=== PATIENT | male | born 1975 | race Caucasian/White ===

== ENCOUNTER 2016-12-29 13:34 | Emergency (ER) | payer OTHER ==
--- NOTE | 2016-12-29 13:50 | EDPHY ---
H & P - Medical/Surgical History Hx Asthma: No Hx Chronic Respiratory Disease: No Hx Diabetes: No Hx Cardiac Disease: No Hx Renal Disease: No Hx Cirrhosis: No Hx Alcoholism: No Hx HIV/AIDS: No Hx Splenectomy or Spleen Trauma: No Other PMH: bipolar with psychotic tendencies - Social History Smoking Status: Never smoked Time Seen by Provider: 12/29/16 13:36 HPI/ROS: CHIEF COMPLAINT: "I'm on 2 cylinders" HISTORY OF PRESENT ILLNESS: 41-year-old male arrives by ambulance accompanied by police on an M1 hold. Per police 911 was called after neighbors observed the patient in the courtyard the apartment complex with an approximately 8 inch knife stabbing the ground, stabbing rocks stating that he was "digging for satellites and gardening". When I inquired about this he states that he was meditating. He denies suicidal homicidal ideations. Repeatedly states "I'm on 2 cylinders". His only complaint physical pain is left lateral knee pain. States that this morning when he was a "smurf" he injured his knee "gardening" REVIEW OF SYSTEMS: A ten point review of systems was performed and is negative with the exception of the items mentioned in the HPI PAST MEDICAL & SURGICAL HISTORY: States his prior psychiatric history will not provide details SOCIAL HISTORY:he denies methamphetamine, alcohol or illicit drug use. PHYSICAL EXAM (Prior to examination, patient consented to physical exam, hands were washed and my usual and customary physical exam procedures followed) 1) GENERAL: Well-developed, well-nourished, alert, oriented, appears to be responding to internal stimuli . 2) HEAD: Normocephalic, atraumatic 3) HEENT: Pupils equal, round, reactive to light bilaterally. Sclera anicteric. 4) NECK: Full range of motion, no meningeal signs. 5) LUNGS: Clear auscultation bilaterally, no wheezes, no rhonchi, no retractions. 6) HEART: Regular rate and rhythm, no murmur, no heave, no gallop. 7) ABDOMEN: No guarding, no rebound, no focal tenderness 8) MUSCULOSKELETAL: Left lower extremity: Subacute ecchymosis left lateral knee with associated tenderness. Otherwise normal color, normal temperature, no effusion, full flexion and extension albeit with some pain to the lateral aspect. Soft compartments. No gross instability. No other visible signs of trauma. Proximally and distally nontender with DP PT pulses present and brisk. Brisk capillary refill distally. Otherwise, Moving all extremities, no focal areas of tenderness, no obvious trauma. No peripheral edema or discoloration. 9) BACK: No CVA tenderness, no midline vertebral tenderness, no fluctuance, no step-off, no obvious trauma, no visual or palpable abnormality. 10) SKIN: No rash, no petechiae. 11) Psychiatric: He appears to be responding to internal stimuli. He is intermittently cooperative. DIFFERENTIAL DIAGNOSIS: in no particular order including but not limited to psychosis, polysubstance abuse, anny (Jimbo Andino) Constitutional: Initial Vital Signs Heart Rate 101 H 12/29/16 13:55 Respiratory Rate 18 12/29/16 13:55 Blood Pressure 132/86 H 12/29/16 13:55 O2 Sat (%) 97 12/29/16 13:55 O2 Delivery Mode Room Air Allergies/Adverse Reactions: erythromycin base Allergy (Verified 07/08/14 18:18) Home Medications: Medication Instructions Recorded Famotidine [Pepcid 20 MG (*)] 20 mg PO DAILY PRN #30 tab 07/23/14 Levothyroxine [Synthroid 50 mcg 50 mcg PO DAILY06 #30 tab 07/23/14 (*)] [place] Carbonate ER [Eskalith Cr 900 mg PO HS #60 tab 07/23/14 450 mg (*)] OLANZapine [ZyPREXA 2.5 mg (*)] 2.5 mg PO BID PRN #60 tab 07/23/14 OLANZapine [ZyPREXA 2.5 mg (*)] 10 mg PO HS #30 tab 07/23/14 Medical Decision Making - Diagnostics Imaging: I viewed and interpreted images myself - Diagnostics Imaging Results: Imaging Impressions Knee X-Ray 12/29/16 18:08 Impression: No acute osseous findings. ED Course/Re-evaluation: 6:00 p.m.: Re-evaluation with serial exams. He is calm and sleeping after Zyprexa. X-ray will be obtained of the left knee as he complains of lateral knee pain. Doubt septic arthritis, doubt DVT, doubt compartment syndrome. 6:20: Care transferred to DR Petit in the ER. Mental health evaluation pending (Jimbo Andino) I took over care of this patient primarily at 6:20 p.m.. The patient is on an M1 hold for acute psychosis. He is awaiting evaluation by Behavioral Health at this time. He has been given Zyprexa. 10:00 p.m., the patient continues to await placement for psychiatric admission. There have been no issues during my shift. Care turned over to Dr. Gabe Joel at this time. (Tonia Petit) 2200 care assumed by me from Dr. Petit pending placement. 22:30 patient has been evaluated by psychiatry. Case discussed with Dr. Agus Carpenter. Patient is now calm and lucid after receiving Zyprexa. He has a history of anny when he skips his lithium. His admitting that he has been skipping his doses recently. His lithium level is only 0.4. He is now appropriate now. Patient is eduardo for safety and is eduardo to take his medications. He has been given 900 mg of lithium here at psychiatrist request. He will be discharged home with close follow-up as an outpatient. He does have medications at home he is in agreement with this plan. Patient is known to Dr. Carpenter very well. (Gabe Joel) - Data Points Laboratory Results: Laboratory Results 12/29/16 14:50 12/29/16 14:50 12/29/16 14:50 [place] 0.4 mEq/L L mEq/L (0.6-1.2) Medications Given: Discontinued Medications [place] Carbonate ([place] Carbonate) 900 mg PO ONCE ONE Stop: 12/29/16 22:03 Last Admin: 12/29/16 22:14 Dose: 900 mg Olanzapine (Zyprexa Im Injection) 10 mg IM EDNOW ONE Stop: 12/29/16 14:19 Last Admin: 12/29/16 14:21 Dose: 10 mg Departure - Departure Disposition: Home, Routine, Self-Care Clinical Impression: Acute psychosis, Traumatic ecchymosis of left knee Condition: Good Instructions: Bipolar Disorder (ED) Additional Instructions: Make sure you take your lithium daily as prescribed. Follow up with your psychiatrist tomorrow as scheduled. Return to the emergency department for increasing confusion, thoughts of self- harm, hallucinations, paranoia, or any other concerns. Referrals: Patient,NotPresent [Primary Care Provider] - As per Instructions
[2016-12-29] MEDS ORDERED: OLANZapine 10 MG/2 ML VIAL ONE (14:10)
[2016-12-29 14:18] VITALS: TEMP 98.4
[2016-12-29] MEDS ORDERED: OLANZapine 10 MG/2 ML VIAL IM ONE (14:18)
[2016-12-29 14:58] LABS: % IMMATURE GRANULYOCYTES 0.4 % (0.0-1.1); ABSOLUTE IMMATURE GRANULOCYTES 0.04 10^3/uL (0.00-0.10); ADD DIFF? NO; ADD MORPH? NO; ADD SCAN? NO; ATYPICAL LYMPHOCYTE FLAG 0 (0-99); FRAGMENT RBC FLAG 0 (0-99); HEMATOCRIT 45.2 % (40.0-51.0); HEMOGLOBIN 15.4 g/dL (13.7-17.5); LEFT SHIFT FLG 0 (0-99); LIPEMIA HEMOLYSIS FLAG 90 (0-99); MEAN CELL HEMOGLOBIN 30.4 pg (27.9-34.1); MEAN CELL HEMOGLOBIN CONCENTR. 34.1 g/dL (32.4-36.7); MEAN CELL VOLUME 89.2 fL (81.5-99.8); MEAN PLATELET VOLUME 9.4 fL (8.7-11.7); PLATELET CLUMPS FLAG 10 (0-99); PLATELET COUNT 324 10^3/uL (150-400); RED BLOOD CELL COUNT 5.07 10^6/uL (4.40-6.38); RED CELL DISTRIBUTION WIDTH 12.2 % (11.5-15.2)
[2016-12-29 15:26] LABS: ANION GAP 18 mEq/L (8-16); CALCIUM 10.5 mg/dL (8.5-10.4); CARBON DIOXIDE 19 mEq/l (22-31); CHLORIDE 101 mEq/L (97-110); CREATININE 1.3 mg/dL (0.7-1.3); ETHANOL SERUM < 10 mg/dL (0-10); GLOMERULAR FILTRATION RATE > 60; GLUCOSE 94 mg/dL (70-100); POTASSIUM 3.7 mEq/L (3.5-5.2); SALICYLATE < 1.0 mg/dL (2.0-20.0); SODIUM 138 mEq/L (134-144)
[2016-12-29 18:58] LABS: LITHIUM 0.4 mEq/L (0.6-1.2)
[2016-12-29] MEDS ORDERED: LITHIUM CARBONATE 300 MG TAB PO ONE (22:02)
[2016-12-29 23:02] VITALS: BP 133/75; PULSE 88; RESP 16; O2SAT 96
== END 2016-12-29 22:49 | disposition home or self-care (01) ==
LOC: EDUNIT#
DX: S80.02XA Contusion of left knee, initial encounter (principal); F23 Brief psychotic disorder; X58.XXXA Exposure to other specified factors, initial encounter; Y99.8 Other external cause status; Y93.H2 Activity, gardening and landscaping
CPT/HCPCS: 80305; G0480

== ENCOUNTER 2017-01-06 14:22 | Inpatient (IN) | payer OTHER ==
[2017-01-06] MEDS ORDERED: OLANZapine 5 MG TAB PO ONE ×2 (14:57→18:13)
[2017-01-06 15:02] LABS: % IMMATURE GRANULYOCYTES 0.5 % (0.0-1.1); ABSOLUTE IMMATURE GRANULOCYTES 0.06 10^3/uL (0.00-0.10); ADD DIFF? NO; ADD MORPH? NO; ADD SCAN? NO; ATYPICAL LYMPHOCYTE FLAG 0 (0-99); FRAGMENT RBC FLAG 0 (0-99); HEMOGLOBIN 14.7 g/dL (13.7-17.5); LEFT SHIFT FLG 0 (0-99); LIPEMIA HEMOLYSIS FLAG 80 (0-99); MEAN CELL HEMOGLOBIN 30.6 pg (27.9-34.1); MEAN CELL HEMOGLOBIN CONCENTR. 33.4 g/dL (32.4-36.7); MEAN CELL VOLUME 91.5 fL (81.5-99.8); MEAN PLATELET VOLUME 9.5 fL (8.7-11.7); PLATELET CLUMPS FLAG 0 (0-99); PLATELET COUNT 397 10^3/uL (150-400); RED BLOOD CELL COUNT 4.81 10^6/uL (4.40-6.38); RED CELL DISTRIBUTION WIDTH 12.1 % (11.5-15.2)
[2017-01-06 15:18] LABS: ANION GAP 17 mEq/L (8-16); CALCIUM 10.6 mg/dL (8.5-10.4); CARBON DIOXIDE 19 mEq/l (22-31); CHLORIDE 105 mEq/L (97-110); CREATININE 1.3 mg/dL (0.7-1.3); ETHANOL SERUM < 10 mg/dL (0-10); GLOMERULAR FILTRATION RATE > 60; GLUCOSE 133 mg/dL (70-100); POTASSIUM 4.2 mEq/L (3.5-5.2); SALICYLATE < 1.0 mg/dL (2.0-20.0); SODIUM 141 mEq/L (134-144)
--- NOTE | 2017-01-06 15:20 | EDPHY ---
H & P Stated Complaint: m1 HPI/ROS: CHIEF COMPLAINT: M1, not taking medication, psychosis HISTORY OF PRESENT ILLNESS: Patient presents and custody of [place] [employer] on an M1 hold. Please for contacted by his sister due to suspected psychosis. Monica montalvo sister, reports that since Friday he has been "really bad." She describes anergy, lack of self-care, not taking medications. History of bipolar disorder , and he is supposed to be taking Zyprexa, lithium and Risperdal. She feels that he is not taking any medications since Friday. She and their father were able to get him to take risperdal last night. She thinks he may have taken 1 lithium last night. Unable to obtain any meaningful history from the patient as he will not answer any questions appropriately. Was recently at this facility last week and discharged home. Followed up with physician on Friday. No other associated complaints or modifying factors obtained from this patient. PSYCHIATRIC DIAGNOSES: Bipolar disorder PRIOR PSYCHIATRIC EVALUATIONS: Multiple M1/DETAINER: By [place] [employer] as Documented REVIEW OF SYSTEMS: Ten systems reviewed and are negative unless otherwise noted in the HPI EXAMINATION General Appearance: Alert, no distress, unkempt Head: normocephalic, atraumatic Eyes: Pupils equal and round, no conjunctival pallor or injection ENT, Mouth: Mucous membranes moist Neck: Normal inspection, midline trachea Respiratory: Retractions or distress. Unable to auscultate due to patient lack of cooperation Cardiovascular: Regular rate. Unable to auscultate due to patient lack of cooperation Gastrointestinal: No abdominal distention Neurological: Alert to person. Unable to obtain remainder of neuro status Skin: Warm and dry, no rash. No signs of laceration or self-harm Extremities: Nontender, no pedal edema Psychiatric: Psychosis with flat affect. He will answer my questions regarding suicidality DIFFERENTIAL DIAGNOSES: Including but not limited to acute psychosis, bipolar disorder, manic episode, depression MDM: 3:08 p.m. Acute psychosis inpatient bipolar disorder not taking his medications. Unable to obtain any meaningful examination from this patient as he will not cooperate with questioning, examination, or history. unable to determine if you suicidal or homicidal. Laboratory studies are pending. 5 mg p.o. Zyprexa administered. 3:35 p.m. Rama HEALY has contacted the patient's pharmacy. She has a complete list of medications prescribed and does that he has not picked up or taking. There is documentation that he has been prescribed levothyroxine. He will not discuss this with us, thus I will order TSH. still waiting for urine sample. 4:45 p.m.. Urinalysis returned. Patient is medically cleared for evaluation. [facility] then notified and they are arranging for evaluation. 6:15 p.m. Notified by RN that the patient is awaiting evaluation. He has become more anxious and agitated. She is requesting Zyprexa p.o.. I have ordered 5 mg. This brings him to a total of 10 mg p.o.. 7:08 p.m. Patient has been accepted to [address] [place] [address] for inpatient psychiatric care. Accepted by Dr. Ying. He will be transported by ambulance. He is transferred in stable condition SUPERVISION: Patient was evaluated in conjunction with the supervising physician. Please see their note for details. Source: Patient, RN/MD - Personal History Current Tetanus/Diphtheria Vaccine: Unsure - Medical/Surgical History Hx Asthma: No Hx Chronic Respiratory Disease: No Hx Diabetes: No Hx Cardiac Disease: No Hx Renal Disease: No Hx Cirrhosis: No Hx Alcoholism: No Hx HIV/AIDS: No Hx Splenectomy or Spleen Trauma: No Other PMH: bipolar with psychotic tendencies - Social History Smoking Status: Never smoked Constitutional: Initial Vital Signs Temperature (C) 98.4 F 01/06/17 14:26 Heart Rate 113 H 01/06/17 14:26 Respiratory Rate 16 01/06/17 14:26 Blood Pressure 117/72 01/06/17 14:26 O2 Sat (%) 97 01/06/17 14:26 O2 Delivery Mode Room Air Allergies/Adverse Reactions: erythromycin base Allergy (Verified 01/06/17 16:04) Home Medications: Medication Instructions Recorded [place] Carbonate ER [Eskalith Cr 900 mg PO HS #60 tab 07/23/14 450 mg (*)] ALPRAZolam [Xanax 0.25 MG (*)] 0.25 mg PO TID PRN 01/06/17 Levothyroxine [Synthroid 50 mcg 75 mcg PO DAILY06 01/06/17 (*)] Propranolol HCl [Inderal 10mg (*)] 10 mg PO DAILY PRN 01/06/17 Zolpidem Tartrate [Ambien 10 mg] 10 mg PO HS 01/06/17 clonAZEPAM [Klonopin] 1 mg PO HS 01/06/17 Medical Decision Making - Data Points Laboratory Results: Laboratory Results 01/06/17 14:36 01/06/17 14:36 01/06/17 01/06/17 01/06/17 16:15 14:36 14:36 WBC 11.19 10^3/uL H 10^3/uL (3.80-9.50) RBC 4.81 10^6/uL 10^6/uL (4.40-6.38) Hgb 14.7 g/dL g/dL (13.7-17.5) Hct 44.0 % % (40.0-51.0) MCV 91.5 fL fL (81.5-99.8) MCH 30.6 pg pg (27.9-34.1) MCHC 33.4 g/dL g/dL (32.4-36.7) RDW 12.1 % % (11.5-15.2) Plt Count 397 10^3/uL 10^3/uL (150-400) MPV 9.5 fL fL (8.7-11.7) Neut % (Auto) 80.9 % H % (39.3-74.2) Lymph % (Auto) 11.3 % L % (15.0-45.0) [place] % (Auto) 4.8 % % (4.5-13.0) Eos % (Auto) 1.6 % % (0.6-7.6) Baso % (Auto) 0.9 % % (0.3-1.7) Nucleat RBC Rel Count 0.0 % % (0.0-0.2) Absolute Neuts (auto) 9.05 10^3/uL H 10^3/uL (1.70-6.50) Absolute Lymphs (auto) 1.26 10^3/uL 10^3/uL (1.00-3.00) Absolute Monos (auto) 0.54 10^3/uL 10^3/uL (0.30-0.80) Absolute Eos (auto) 0.18 10^3/uL 10^3/uL (0.03-0.40) Absolute Basos (auto) 0.10 10^3/uL 10^3/uL (0.02-0.10) Absolute Nucleated RBC 0.00 10^3/uL 10^3/uL (0-0.01) Immature Gran % 0.5 % % (0.0-1.1) Immature Gran # 0.06 10^3/uL 10^3/uL (0.00-0.10) Sodium 141 mEq/L mEq/L (134-144) Potassium 4.2 mEq/L mEq/L (3.5-5.2) Chloride 105 mEq/L mEq/L (97-110) Carbon Dioxide 19 mEq/l L mEq/l (22-31) Anion Gap 17 mEq/L H mEq/L (8-16) BUN 17 mg/dL mg/dL (7-23) Creatinine 1.3 mg/dL mg/dL (0.7-1.3) Estimated GFR > 60 Glucose 133 mg/dL H mg/dL (70-100) Calcium 10.6 mg/dL H mg/dL (8.5-10.4) Salicylates < 1.0 mg/dL L mg/dL (2.0-20.0) Urine Opiates Screen NEGATIVE (NEGATIVE) Acetaminophen < 10 mcg/mL L mcg/mL (10-30) Urine Barbiturates NEGATIVE (NEGATIVE) Ur Phencyclidine Scrn NEGATIVE (NEGATIVE) Ur Amphetamine Screen NEGATIVE (NEGATIVE) U Benzodiazepines Scrn NEGATIVE (NEGATIVE) [place] 1.0 mEq/L mEq/L (0.6-1.2) Urine Cocaine Screen NEGATIVE (NEGATIVE) U Marijuana (THC) Screen NEGATIVE (NEGATIVE) Ethyl Alcohol < 10 mg/dL mg/dL (0-10) Medications Given: Discontinued Medications Olanzapine (Olanzapine) 5 mg PO ONCE ONE Stop: 01/06/17 14:58 Last Admin: 01/06/17 15:19 Dose: 5 mg Olanzapine (Olanzapine) 5 mg PO ONCE ONE Stop: 01/06/17 18:14 Last Admin: 01/06/17 18:24 Dose: 5 mg Departure - Departure Disposition: [facility] IP Clinical Impression: Acute psychosis Bipolar disorder Qualifiers: Active/Remission status: currently active Current bipolar episode type: mixed Current episode severity: moderate Qualified Code(s): F31.62 - Bipolar disorder , current episode mixed, moderate Condition: Good Referrals: NONE *PRIMARY CARE P,. [Primary Care Provider] - As per Instructions
[2017-01-06] MEDS ORDERED: MAG HYDROX/AL HYDROX/SIMETH 30 ML UDCUP PO PRN (21:43)
[2017-01-06] MEDS ORDERED: OLANZapine DISINTEGR 10 MG TAB PO PRN (21:43)
[2017-01-06] MEDS ORDERED: ACETAMINOPHEN 325 MG TAB PO PRN (21:43)
[2017-01-06] MEDS ORDERED: MAGNESIUM HYDROXIDE 30 ML UDCUP PO PRN (21:43)
[2017-01-06] MEDS: LITHIUM CARBONATE ER 450 MG TAB PO SCH ×2 (22:04→22:36)
[2017-01-06] MEDS: ZOLPIDEM TARTRATE 5 MG TAB PO SCH (22:04)
[2017-01-06] MEDS: PROPRANOLOL HCL 10 MG TAB PO PRN (22:05)
[2017-01-07] MEDS: NICOTINE POLACRILEX 2 MG GUM B PRN ×7 (05:38→17:37)
[2017-01-07] MEDS: LEVOTHYROXINE 75 MCG TAB PO SCH (08:35)
[2017-01-07] MEDS: LORazepam 0.5 MG TAB PO PRN ×2 (08:35→11:06)
[2017-01-07] MEDS: PROPRANOLOL HCL 10 MG TAB PO PRN (08:36)
[2017-01-07] MEDS: NICOTINE 14 MG/24 HR PATCH TD SCH ×2 (11:43→11:47)
[2017-01-07] MEDS: OLANZapine DISINTEGR 10 MG TAB PO SCH ×2 (11:47→22:20)
--- NOTE | 2017-01-07 13:07 | BAPA ---
[f rep st] ADMISSION PSYCHIATRIC ASSESSMENT DATE OF SERVICE: 01/07/2017 REASON FOR ADMISSION: Patient is a 41-year-old male with history of bipolar disorder that apparently presents with recurrent anny with psychosis. He came to the emergency department yesterd ay after his sister called the police to do a welfare check. He had numerous run-ins with the police recently, causing disturbances around his apartment complex and she was concerned that he was becomi ng manic. He has had repeated episodes of psychotic anny, the last being last spring where [facility] was apparently able to manage him in her home but she reported then and then again to the [facility] staf f yesterday that the patient is very fragile and if he misses even a dose of medications it can set h im off. The patient is unable to give much of a clear history today stating that he was compliant wi th his medications and that he believes he is in perfectly good health. In fact, he is very disorgan ized, disheveled and had been acting bizarrely in his home which is consistent with previous episodes of anny. He had been playing drums loudly, disturbing the neighbors and breaking rocks with a cr er. 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 He again states that he has been compliant with his medications. He states that the lithium works well for him but he does not like Zyprexa but cannot say why. He is unclear whether he has been sleeping recently though the sister re ported that he may not have been. In the emergency department he was agitated and disorganized, unab le to give meaningful history there are either. Much of the history was taken from previous evaluati ons and collateral information from his sister. I have reviewed his last hospitalization with [facility] was from July 08, 2014 to July 23, 2014 under the care primarily of Dr. Jaimee Lees. At that time, the patient was diagnosed with bipolar type 1 disorder and treated with a combination of lithiu m and Zyprexa. He stabilized well. PAST PSYCHIATRIC HISTORY: Significant for 3 previous psychiatric hospitalizations, last at [facility] as mentioned above. He sees Dr. Holden in [place] for his medication management and has a [facility] individual therapist. ALLERGIES: Erythromycin. CURRENT MEDICATIONS: Levothyroxine 75 mcg daily. Alprazolam 0.25 mg three times daily p.r.n. [place] zepam 1 mg at bedtime. [place] carbonate ER 900 mg at bedtime. Propranolol 10 mg daily. Ambien 10 mg at bedtime. PAST MEDICAL HISTORY: Noncontributory. SOCIAL HISTORY: Patient is single, lives alone in an apartment in [place]. His sister is his primar y support. 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 He reportedly drinks alcohol on a regular basis, though he c annot describe the amount. His sister gives collateral information that she believes he has been dri nking excessively. He has no history of legal problems. He notes no other stressors and none are do cumented by the [facility] report. FAMILY HISTORY: Noncontributory. ADMISSION LABORATORY: CBC shows a white count slightly up at 11.19 with neutrophils also up at 80.9% . Carbon dioxide is low at 19 with an anion gap up at 17. Nonfasting glucose is up at 133. Calcium is slightly up at 10.6. Urine drug screen is negative for all substances. [place] was 1.0 on arriv al. Alcohol was less than detectable. MENTAL STATUS EXAMINATION: Reveals a thin, though healthy-appearing male. He is marginall y groomed. He is wearing pajama bottoms and a T-shirt. He interacts appropriately though appears to be quite guarded. His activity is slightly increased with some psychomotor agitation such as pacing and standing uneasily at the nurses station. His speech is hesitant, delayed at times but also volu minous at other times. His affect is constricted, anxious. His mood is described as "just fine." T hought process is tangential, disorganized at times. Thought content reveals possible paranoia. He is alert and oriented to person, place, time, and situation though he struggles to answer most questi ons. His attention and concentration are poor. Patient's intellect appears to be above average, as evidenced by his educational and occupational histories. He denies any thoughts of suicide, homicide or violence. His insight and judgment appear to be poor. IMPRESSION: Bipolar 1 disorder, most recent episode manic, severe, with psychosis. Chronic illness, recurrent illness. Marginal supports. Conflict with neighbors. Patient is a pleasant 41-year-old male who presents with what appears to be a recurrence of his psychotic anny. There are some aspects of it that are atypical including level of confusion he has and his disrupted thoughts. This is, however, consistent with a description of his last present ation and description that his sister gives of his presentations when he is manic. I do not believe that he is delirious though he has slightly elevated white counts. Will need to monitor this as well . PLAN: 1. Admit to [facility] inpatient unit on an M1 hold. 2. Continue outpatient medications including lithium with the addition of Zyprexa. The risks, benef its and alternatives of Zyprexa were discussed with the patient. He states he is not excited about t aking it but will consider it. 3. Will engage in individual, group, and milieu psychotherapies. Provide supportive environment. 4. Will hope to engage patient's sister as a primary support and would have a family meeting if shivani red. 5. Estimated length of stay is 5-7 days. /[id number]/MODL
--- NOTE | 2017-01-07 15:17 | BCON ---
[f rep st] BEHAVIORAL HEALTH CONSULTATION INTERNAL MEDICINE CONSULTATION DATE OF CONSULTATION: 01/07/2017 REFERRING PHYSICIAN: Brando Doe MD REASON FOR REFERRAL: Medical clearance for inpatient behavioral health stay. HISTORY OF PRESENT ILLNESS: [facility] after his sister called police for a welfare check. She was concerned that he was not taking care of himself and not taking his medications. He was evaluated by the mental health team and admitted for further psychiatric care. He is currently without any acute complaints. PAST MEDICAL HISTORY: 1. Bipolar disorder. 2. Hypothyroidism. 3. Multiple cutaneous warts. PAST SURGICAL HISTORY: He reports he has had several dental procedures. Additionally, he has had multiple warts removed from his fingers and foot. MEDICATIONS: He was prescribed lithium, levothyroxine, and per the emergency department note, olanzapine. Also, there is reference to Risperdal, and then on the medication summary, it lists zolpidem, clonazepam, alprazolam, and propranolol. ALLERGIES: He has an allergy listed to erythromycin. SOCIAL HISTORY: He lives alone in an apartment in [place]. He is an occasional cigarette smoker. 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 FAMILY HISTORY: Noncontributory. REVIEW OF SYSTEMS: Difficult to elicit. He seems to make reference to possible temporomandibular joint issues on the left. He says his weight has fluctuated by 2 or 3 pounds, up or down. He feels cold. He denies cough, dyspnea, fevers or chills, nausea, vomiting, constipation, or diarrhea. He is unclear about his appetite and makes tangential statements when asked. Otherwise, to the extent that it could be obtained, a 10-point review of systems was negative. PHYSICAL EXAM: VITAL SIGNS: Blood pressure is 146/87, heart rate is 80, respiratory rate 16, oxygen saturation 95% on room air, temperature 36.5 degrees centigrade. His weight is 72.6 kg for a body mass index of 23.6. GENERAL: This is a well-nourished, well-developed man, sitting at a table, cooperative and in no acute distress. HEENT: Extraocular movements are intact. Pupils are equal, round, reactive to light. He has exophthalmos bilaterally. Mucous membranes are moist. Dentition is in good condition. He has an uncrowded airway, Mallampati class 1. NECK: Supple. HEART: There is a regular rate and rhythm with no murmurs, rubs, or gallops. LUNGS: Clear to auscultation bilaterally. ABDOMEN: Soft, nontender, nondistended with normoactive bowel sounds. EXTREMITIES: There is no cyanosis, clubbing, or edema. NEUROLOGIC: He is alert, he is oriented to himself and his location. Orientation to month and date were not tested. Cranial nerves 2-12 are grossly intact. There is no focal weakness. Sensation is intact to light touch. LABORATORY STUDIES: Drawn in the emergency department: CBC showed a mild elevation of white blood cells of 11.19, with a predominance of absolute neutrophils at 9.05. Serum chemistry showed a low carbon dioxide at 19. He had a positive anion gap at 17. Glucose was 133, but this was likely not fasting. Calcium was slightly high at 10.6. Otherwise, renal function and electrolytes were within normal limits. Toxicology screen in the serum was negative for salicylates, acetaminophen or ethyl alcohol. [place] level was therapeutic at 1. Toxicology screen in the urine was negative for any substances of abuse. ASSESSMENT/RECOMMENDATIONS: 1. Mental health issues, pending further evaluation and management per Psychiatry and the mental health team. 2. Hypothyroidism and exophthalmos. It is conceivable that he has Graves disease. Exam is somewhat confounded by a reduced blink rate, which might be consistent with having received antipsychotic medications. I will add on a TSH , though it is unclear to what extent he has been compliant with his levothyroxine. If the TSH is significantly suppressed, then it is conceivable that hyperthyroidism could be contributing to his psychiatric state. If it is low, advise continuing levothyroxine supplementation, ensuring compliance, and rechecking a TSH in 4-6 weeks. 3. Reduced blink rate. He otherwise seems to have some psychomotor agitation and a slight tremor. He also has description of possible temporomandibular joint pain, though it is discussed in the context of hearing chattering, and he refers to the television as a source of chattering. Advise observation, especially with reinstatement of antipsychotics, to ensure that there is no dyskinesia development. 4. I see no medical contraindications to this patient's continued stay on the inpatient behavioral health unit or to any psychiatric medications or procedures. Thank you very much for including me in the care of this patient. Please do not hesitate to contact me or the hospitalist service, should there be need for further medical evaluation. /[id number]/MODL MTDD
[2017-01-07] MEDS ORDERED: HALOPERIDOL LACT 5 MG/ML INJ ONE (22:20)
[2017-01-07] MEDS ORDERED: LORazepam 2 MG/ML INJ ONE (22:20)
[2017-01-07] MEDS: LITHIUM CARBONATE ER 450 MG TAB PO SCH (22:20)
[2017-01-07] MEDS: ZOLPIDEM TARTRATE 5 MG TAB PO SCH (22:21)
[2017-01-07] MEDS ORDERED: LORazepam 2 MG/ML INJ IM ONE (22:30)
[2017-01-07] MEDS ORDERED: HALOPERIDOL LACT 5 MG/ML INJ IM ONE (22:30)
[2017-01-08] MEDS: LEVOTHYROXINE 75 MCG TAB PO SCH (12:37)
[2017-01-08] MEDS: PROPRANOLOL HCL 10 MG TAB PO PRN (12:42)
[2017-01-08] MEDS: NICOTINE 14 MG/24 HR PATCH TD SCH (13:44)
[2017-01-08 16:53] LABS: LITHIUM 0.4 mEq/L (0.6-1.2)
[2017-01-08] MEDS: NICOTINE POLACRILEX 2 MG GUM B PRN (18:40)
[2017-01-08] MEDS: LITHIUM CARBONATE ER 450 MG TAB PO SCH (21:00)
[2017-01-08] MEDS: OLANZapine DISINTEGR 10 MG TAB PO SCH (21:00)
[2017-01-08] MEDS: ZOLPIDEM TARTRATE 5 MG TAB PO SCH (21:00)
[2017-01-09] MEDS: LEVOTHYROXINE 75 MCG TAB PO SCH (08:11)
[2017-01-09] MEDS: NICOTINE 14 MG/24 HR PATCH TD SCH (08:42)
[2017-01-09] MEDS: PROPRANOLOL HCL 10 MG TAB PO PRN (08:59)
--- NOTE | 2017-01-09 09:07 | SOAPPROG ---
SOAP Progress Note Assessment/Plan: Assessment: Plan: 01/09/17 09:06 Remains manic, agitated, psychotic. Will CCM. 01/09/17 09:07 Remains manic, psychotic. CCM. Subjective: LATE ENTRY FOR 01/08/17. Pt seen, discussed with staff. Events of last night reviewed with staff and pt. He has limited insight into this stating he was "just upset about being here." Has been calmer today. Good effect from Emeds. Seclusion not required after meds given. Sitting in dining room this morning, not interacting meaningfully with others. States he feels "better today." Objective: Vital Signs Temp Pulse Resp BP Pulse Ox 36.3 C 85 12 135/78 H 98 01/09/17 06:00 01/09/17 08:47 01/09/17 08:47 01/09/17 08:47 01/09/17 08:47 MSE: Disheveled, guarded. Affect is constricted, irritable. Mood is "better." TP linear for brief periods, tangential at other times. TC reveals paranoia. - Time Spent With Patient Time Spent With Patient: 15" - Pending Discharge Pending Discharge Within 24 Hours: No ICD10 Worksheet Patient Problems: Problems Problem Status Onset Acute psychosis Acute Bipolar affective disorder Acute
[2017-01-09] MEDS: NICOTINE POLACRILEX 2 MG GUM B PRN ×3 (13:49→19:10)
--- NOTE | 2017-01-09 19:51 | SOAPPROG ---
SOAP Progress Note Assessment/Plan: Assessment: Plan: 01/09/17 09:06 Remains manic, agitated, psychotic. Will CCM. 01/09/17 09:07 Remains manic, psychotic. CCM. 01/09/17 19:51 Much improved today. CCM. Subjective: Pt seen, discussed with staff. Reports feeling "a lot better" today. He looks better with a clearer countenance, more spontaneous responses to questions and more organized. thoughts. Continues to state he needs to leave the hospital and is unwilling to sign in voluntarily. He c/o ongoing bilateral hand tremors. AIMS performed by RN = 7. I note bilateral course hand tremor, worse with intention. No cogwheeling. Objective: Vital Signs Temp Pulse Resp BP Pulse Ox 36.3 C 85 12 135/78 H 98 01/09/17 06:00 01/09/17 08:47 01/09/17 08:47 01/09/17 08:47 01/09/17 08:47 MSE: Calmer, though still guarded. Affect is constricted, stable, approp. Mood is "better." TP linear. TC reveals continued paranoia, though less intrusive. - Time Spent With Patient Time Spent With Patient: 15" ICD10 Worksheet Patient Problems: Problems Problem Status Onset Acute psychosis Acute Bipolar affective disorder Acute
[2017-01-09] MEDS: OLANZapine DISINTEGR 10 MG TAB PO SCH (21:39)
[2017-01-09] MEDS: LITHIUM CARBONATE ER 450 MG TAB PO SCH (21:39)
[2017-01-09] MEDS: PROPRANOLOL HCL 10 MG TAB PO SCH (21:39)
[2017-01-09] MEDS: ZOLPIDEM TARTRATE 5 MG TAB PO SCH (21:39)
[2017-01-10] MEDS: LEVOTHYROXINE 75 MCG TAB PO SCH (07:28)
[2017-01-10] MEDS: PROPRANOLOL HCL 10 MG TAB PO SCH ×2 (07:28→20:48)
[2017-01-10] MEDS: NICOTINE POLACRILEX 2 MG GUM B PRN ×4 (07:28→19:28)
[2017-01-10] MEDS: NICOTINE 14 MG/24 HR PATCH TD SCH (07:55)
--- NOTE | 2017-01-10 15:12 | SOAPPROG ---
SOAP Progress Note Assessment/Plan: Assessment: Plan: 01/09/17 09:06 Remains manic, agitated, psychotic. Will CCM. 01/09/17 09:07 Remains manic, psychotic. CCM. 01/09/17 19:51 Much improved today. [facility]. 01/10/17 15:12 Continued improvement. Not at baseline following recent decompensation. needs to improve further to allow safe d/c and compliance with outpatient plan including traveling to [place] via car with his father. Subjective: Pt seen, discussed with staff. Reports feeling "a lot better" again today. Slept well. Tolerating meds well. Asks about Zyprexa vs. Risperdal and we discussed the differences. He voices a preference for Zyprexa. Family meeting held with pt, myself, CC, pt's father and pt's sister. This went well. All agreed on plan to go to [place] after d/c with likely d/c on Friday to allow maximum improvement. Objective: Vital Signs Temp Pulse Resp BP Pulse Ox 36.4 C 72 12 105/68 97 01/10/17 06:00 01/10/17 06:00 01/10/17 06:00 01/10/17 06:00 01/10/17 06:00 MSE; Well-groomed, coop. Affect is constricted, stable, approp. Mood is "fine." TP generally linear, but gives some rather circumstantial or "canned" answers to questions at times as if he didn't really follow the questions. Answers such as "We will have to see how that goes" or "We can talk about that later." TC reveals better organization and no evidence of perceptual disturbances. - Time Spent With Patient Time Spent With Patient: 35" ICD10 Worksheet Patient Problems: Problems Problem Status Onset Acute psychosis Acute Bipolar affective disorder Acute
[2017-01-10] MEDS: OLANZapine DISINTEGR 10 MG TAB PO SCH (20:49)
[2017-01-10] MEDS: LITHIUM CARBONATE ER 450 MG TAB PO SCH (20:49)
[2017-01-10] MEDS: ZOLPIDEM TARTRATE 5 MG TAB PO SCH (20:49)
[2017-01-11 06:25] VITALS: RESP 14
[2017-01-11] MEDS: LEVOTHYROXINE 75 MCG TAB PO SCH (07:56)
[2017-01-11] MEDS: PROPRANOLOL HCL 10 MG TAB PO SCH ×2 (07:57→21:09)
[2017-01-11] MEDS: NICOTINE 14 MG/24 HR PATCH TD SCH (10:40)
--- NOTE | 2017-01-11 12:49 | SOAPPROG ---
SOAP Progress Note Assessment/Plan: Assessment: Plan: 01/09/17 09:06 Remains manic, agitated, psychotic. Will CCM. 01/09/17 09:07 Remains manic, psychotic. CCM. 01/09/17 19:51 Much improved today. CCM. 01/10/17 15:12 Continued improvement. Not at baseline following recent decompensation. needs to improve further to allow safe d/c and compliance with outpatient plan including traveling to [place] via car with his father. 01/11/17 12:48 Continued daily improvement. Will [facility], check lithium level tomorrow. Subjective: Pt seen, discussed with staff. Reports feeling "pretty good." Participating in groups. Slept well last night. Objective: Vital Signs Temp Pulse Resp BP Pulse Ox 36.6 C 62 14 133/78 H 97 01/11/17 06:00 01/11/17 07:57 01/11/17 06:00 01/11/17 07:57 01/11/17 06:00 MSE: Well-groomed, pleasant and coop. Affect is blunted, stable. Mood is "OK. " TP linear, though slowed. TC reveals no mention of paranoia. - Time Spent With Patient Time Spent With Patient: 15" ICD10 Worksheet Patient Problems: Problems Problem Status Onset Acute psychosis Acute Bipolar affective disorder Acute
[2017-01-11] MEDS: NICOTINE POLACRILEX 2 MG GUM B PRN ×2 (13:11→17:12)
[2017-01-11] MEDS: LITHIUM CARBONATE ER 450 MG TAB PO SCH (17:46)
[2017-01-11] MEDS: ZOLPIDEM TARTRATE 5 MG TAB PO SCH (21:08)
[2017-01-11] MEDS: OLANZapine DISINTEGR 10 MG TAB PO SCH (21:09)
[2017-01-12 06:21] VITALS: O2SAT 94
[2017-01-12] MEDS: PROPRANOLOL HCL 10 MG TAB PO SCH ×2 (08:18→20:47)
[2017-01-12] MEDS: NICOTINE POLACRILEX 2 MG GUM B PRN ×2 (08:35→18:40)
[2017-01-12] MEDS: NICOTINE 14 MG/24 HR PATCH TD SCH (11:42)
[2017-01-12] MEDS: LEVOTHYROXINE 75 MCG TAB PO SCH (15:08)
--- NOTE | 2017-01-12 20:29 | SOAPPROG ---
SOAP Progress Note Assessment/Plan: Assessment: Plan: 01/09/17 09:06 Remains manic, agitated, psychotic. Will CCM. 01/09/17 09:07 Remains manic, psychotic. CCM. 01/09/17 19:51 Much improved today. CCM. 01/10/17 15:12 Continued improvement. Not at baseline following recent decompensation. needs to improve further to allow safe d/c and compliance with outpatient plan including traveling to [place] via car with his father. 01/11/17 12:48 Continued daily improvement. Will [facility], check lithium level tomorrow. 01/12/17 20:28 Doing well. CCM. Likely d/c in am if all is well. Subjective: Pt seen, discussed with staff. Reports feeling "pretty good." Up and groomed, making his bed. States he is ready to be d/c'd to his father's home. Father and sister are present for visiting and voice their continued support of the plan. Objective: Vital Signs Temp Pulse Resp BP Pulse Ox 36.3 C 72 14 113/72 94 01/12/17 06:00 01/12/17 08:18 01/12/17 06:00 01/12/17 08:18 01/12/17 06:00 MSE: Calm, coop. Affect is blunted, stable, approp. Mood is "pretty good." TP generally linear, though does derail at times. TC reveals no mention of paranoid thoughts. [place] level = 1.0 - Time Spent With Patient Time Spent With Patient: 15" ICD10 Worksheet Patient Problems: Problems Problem Status Onset Acute psychosis Acute Bipolar affective disorder Acute
[2017-01-12] MEDS: LITHIUM CARBONATE ER 450 MG TAB PO SCH (20:47)
[2017-01-12] MEDS: ZOLPIDEM TARTRATE 5 MG TAB PO SCH (20:47)
[2017-01-12] MEDS: OLANZapine DISINTEGR 10 MG TAB PO SCH (20:47)
[2017-01-13 06:32] VITALS: BP 108/65; PULSE 57; TEMP 98
[2017-01-13] MEDS: PROPRANOLOL HCL 10 MG TAB PO SCH (08:21)
[2017-01-13] MEDS: LEVOTHYROXINE 75 MCG TAB PO SCH (08:22)
[2017-01-13] MEDS: NICOTINE POLACRILEX 2 MG GUM B PRN (08:22)
[2017-01-13] MEDS: NICOTINE 14 MG/24 HR PATCH TD SCH (10:29)
--- NOTE | 2017-01-13 11:38 | BDS ---
[f rep st] BEHAVIORAL HEALTH DISCHARGE SUMMARY REASON FOR ADMISSION: Patient is a 41-year-old male with a history of schizoaffective diso rder. He presented to the emergency department by police after his sister called to do a welfare pedro ck. He had apparently causes several minor disturbances in his apartment complex, and she was concer moody that he was not taking his medicines and might have been slipping back into psychosis, which is s omething that happens with him from time to time. A full description of the events preceding admissi on can be found in his admission history dated 01/07/2017. ADMITTING DIAGNOSES: 1. Bipolar 1 disorder, most recent episode manic, severe, with psychosis. 2. Chronic illness. 3. Recurrent illness. 4. Marginal supports. 5. Conflict with neighbors. PHYSICAL EXAMINATION: Admitting physical examination performed by Dr. Rubén Lopez, showed no acu te physical findings. ADMISSION LABORATORY: CBC showed a white count up at 11.19, neutrophil percentage was also up at 80. 9%. Serum chemistries showed anion gap up at 17, with a carbon dioxide low at 19, nonfasting glucose was up at 133, calcium was slightly elevated at 10.6, TSH was normal at 2.13. [place] level on admi ssion was 1.0, and a repeat on 01/08 was 0.4. Urine drug screen was otherwise negative for all subst ances. Alcohol is less than detectable. HOSPITAL COURSE: Patient was admitted to the behavior health services inpatient unit on an M1 hold. He was disheveled, disorganized, paranoid and struggled greatly to give a history. He appeared to w ant to interact and was attempting to be pleasant, though he was internally preoccupied and his level of disorganization prohibited most meaningful interaction. He was agreeable to medication treatment , but he did state he did not like the Zyprexa. I reviewed with him that he had taken Zyprexa with Jimbo Lees and had actually done well with this, and he stated that he was willing to try it again. Susanne case continued him on his lithium and the Zyprexa at 10 mg h.s., and he did well. His initial lithium l evel was 1.0, and I doubted this given his level of symptoms and the fact that he was presumed to be treatment noncompliant. I assumed that he might have taken some just prior to coming to the hospital , and when we re-hugo it 2 days later after consistent dosing, it was only 0.4; I believe this was an erroneously high level. However, when it was drawn day prior to discharge it was back to 1.0, which would indicate that his discharge dose of lithium was adequate. The patient's hospital course was uncomplicated. He was compliant with all medications. Initially, he was quite reserved and isolating in his room. He was internally preoccupied and appeared paranoid , though did not express himself often. He did have 1 episode of agitation where he became very angr y and threw a chair in his room requiring emergency medications on the 2nd night of admission. This was in response to a very elevated milieu due to some other psychotic and agitated patients. After t hat, he was calm and cooperative, we had no further behavioral issues. I was able to have a family m eeting with the patient, his father and his sister on 01/10/2017, with myself and the care coordinato r present. We discussed his outpatient discharge plan, and he voiced willingness to go with his [facility] er back to his father's home in [place] and leave his apartment here in [place]. All were in agreeme nt with this, and at the time of discharge this remained the plan. CONDITION AT DISCHARGE: Patient was stable. His affect was blunted, though much brighter. He was d isplaying no evidence of acute paranoia and was not internally preoccupied. He was performing his AD Ls well, was neatly groomed, and was cleaning his room and making his bed fastidiously. He was compl iant with all medications and voiced a desire to continue his outpatient treatment. DISCHARGE MEDICATIONS: Levothyroxine 75 mcg daily, lithium carbonate ER 900 mg h.s., and Zyprexa 10 mg at h.s. DISCHARGE DIAGNOSES: 1. Schizoaffective disorder, bipolar type, chronic with acute exacerbation. 2. Chronic illness. 3. Recurrent illness. 4. Marginal supports. DISPOSITION: Patient left the hospital with his father to return to his father's home in [place]. FOLLOWUP: With [facility] in [place] per arrangement of lead care manager. LEGAL COURSE: The patient was placed on a short-term certification at the expiration of his M1 hold. Short-term certification was discontinued at the time of his discharge. /[id number]/MODL
== END 2017-01-13 13:00 | disposition home or self-care (01) | DRG 885 ==
LOC: BBEH 20:00
PROVIDERS: ADMIT Psychiatry & Neurology Psychiatry; ATTEND Psychiatry & Neurology Psychiatry
DX: F31.5 Bipolar disorder, current episode depressed, severe, with psychotic features (principal); E03.9 Hypothyroidism, unspecified; B07.8 Other viral warts; Z91.14 Patient's other noncompliance with medication regimen
CPT/HCPCS: 80305; G0480; J1200; J2060